=== PATIENT | female | born 1975 | race Caucasian/White ===

== ENCOUNTER 2023-05-12 09:38 | Emergency (ER) | payer OTHER ==
[~2023-05-12] VITALS: Ht 157.5 cm; Wt 65.8 kg
== END 2023-05-12 12:24 | disposition home or self-care (01) ==
LOC: ER 09:38
DX: S80.01XA Contusion of right knee, initial encounter (principal); W22.8XXA Striking against or struck by other objects, initial encounter; Y93.89 Activity, other specified; Y92.89 Other specified places as the place of occurrence of the external cause; S29.8XXA Other specified injuries of thorax, initial encounter
CPT/HCPCS: 71110; 73560; 96372; 99284; J1885